=== PATIENT | female | born 1980 | race Caucasian/White ===

== ENCOUNTER 2018-01-08 12:09 | Outpatient (CLI) | payer MEDICAID ==
[~2018-01-08] VITALS: Ht 180.3 cm; Wt 102.3 kg
[~2018-01-08 12:09] MED LIST: LEVO200T PO; OXYC-302 PO; PREN1TAB60 PO
[2018-01-08 12:21] VITALS: BP 103/62
[2018-01-08 13:43] LABS: MICROSCOPIC NOT IND
[2018-01-08 13:52] LABS: CULTURE INDICATED? NO
[2018-01-08 13:55] LABS: AMPHETAMINE SCREEN, URINE Negative (Negative); BARBITURATE SCREEN, URINE Negative (Negative); BENZODIAZEPINE SCREEN, URINE Negative (Negative); CANNABINOID SCREEN, URINE Negative (Negative); COCAINE SCREEN, URINE Negative (Negative); METHADONE SCREEN, URINE Negative (Negative); OPIATE SCREEN, URINE Negative (Negative)
[2018-01-08] MEDS ORDERED: BUPR2TAB PO (14:45)
[2018-01-08] MEDS ORDERED: LEVO200V10 PO (14:45)
[2018-01-08] MEDS ORDERED: DOCU-131 PO (14:45)
== END 2018-01-08 16:00 | disposition home or self-care (01) ==
LOC: LDOP 12:09
PROVIDERS: ATTEND Obstetrics & Gynecology
DX: O36.8130 Decreased fetal movements, third trimester, not applicable or unspecified (principal); Z3A.35 35 weeks gestation of pregnancy
CPT/HCPCS: 59025; 76805; 80307; 81003; 84112; 87081; 89060; 99201; G0463; Q0114

== ENCOUNTER 2019-10-22 19:08 | Emergency (ER) | payer MEDICAID ==
[~2019-10-22] VITALS: Ht 180.3 cm; Wt 106.3 kg
[~2019-10-22 19:08] MED LIST changes: +BUPR2TAB PO; +DOCU-131 PO; +IBUP-1222 PO; +LEVO200T5 PO; +LEVO200V10 PO
[2019-10-22 19:12] VITALS: BP 135/92
--- NOTE | 2019-10-22 20:33 | NUR ---
present pov with reports of right throat pain "I accidentilly poked the back of my mouth with My toothbrush on Sunday it bleed a little bit but it felt like it was getting better now I can't swallow and my righ jaw hurts." Hx of tonisillectomy; Slightly febrile (99f), white patches to right pharynx
[2019-10-22] MEDS ORDERED: LIDOCAINE 2% VISCOUS, 100ML MM STA (20:52)
[2019-10-22] MEDS ORDERED: LIDOCAINE 2% VISCOUS 15 ML UDC ONE (20:56)
--- NOTE | 2019-10-22 21:06 | NUR ---
medicated per emar
== END 2019-10-22 22:29 | disposition home or self-care (01) ==
LOC: ED 21:51
DX: J02.8 Acute pharyngitis due to other specified organisms (principal); B97.89 Other viral agents as the cause of diseases classified elsewhere; K12.0 Recurrent oral aphthae
CPT/HCPCS: 36415; 87081; 87806; 87880; 99283; G0475